=== PATIENT | female | born 1995 | race Caucasian/White ===

== ENCOUNTER → 2024-07-11 | Emergency (ER) | payer SELFPAY ==
[~2024-07-11] VITALS: Ht 175.3 cm; Wt 90.7 kg
[~2024-07-11] MED LIST: TDAP [DIPH/PERTUSSIS/TET] 0.5 ML VIAL IM ONE
[2024-07-11 20:53] VITALS: BP 138/84; TEMP 98.2; O2SAT 99
[2024-07-11] MEDS: BACI/NEOM/POLY B OINT PKT 1 UDPKT PACKET TP ONE (21:37)
[2024-07-11] MEDS: TDAP [DIPH/PERTUSSIS/TET] 0.5 ML VIAL IM ONE (21:37)
[2024-07-11] MEDS: LIDOCAINE HCL/PF 1% 30 ML VIAL TP ONE (21:37)
== END | disposition home or self-care (01) ==
LOC: ER 22:29
DX: S61.215A Laceration without foreign body of left ring finger without damage to nail, initial encounter (principal); F17.200 Nicotine dependence, unspecified, uncomplicated; W26.0XXA Contact with knife, initial encounter; Y93.G3 Activity, cooking and baking; Y92.090 Kitchen in other non-institutional residence as the place of occurrence of the external cause; Y99.8 Other external cause status
CPT/HCPCS: 12001; 90471; 90715; 99283; J3490